=== PATIENT | male | born 1985 | race Caucasian/White ===

== ENCOUNTER 2019-02-19 15:19 | Emergency (ER) | payer SELFPAY ==
[~2019-02-19] VITALS: Ht 170.2 cm; Wt 56.8 kg
[~2019-02-19 15:19] MED LIST: NOCURR
[2019-02-19 15:40] VITALS: BP 162/86
== END 2019-02-19 18:02 | disposition left against medical advice (07) ==
LOC: EMS 15:19
DX: Z02.89 Encounter for other administrative examinations (principal); Z53.21 Procedure and treatment not carried out due to patient leaving prior to being seen by health care provider

== ENCOUNTER 2019-03-07 10:35 | Emergency (ER) | payer OTHER ==
[~2019-03-07] VITALS: Ht 170.2 cm; Wt 56.8 kg
[2019-03-07] MEDS ORDERED: IBUPROFEN 600 MG TABLET PO ONE (13:00)
[2019-03-07] MEDS ORDERED: ACETAMINOPHEN 325 MG TABLET PO ONE (13:00)
[2019-03-07 13:50] VITALS: BP 106/58
== END 2019-03-07 14:24 | disposition home or self-care (01) ==
LOC: EMS 10:35
DX: S63.91XA Sprain of unspecified part of right wrist and hand, initial encounter (principal); L03.113 Cellulitis of right upper limb; F12.90 Cannabis use, unspecified, uncomplicated; F19.90 Other psychoactive substance use, unspecified, uncomplicated; X58.XXXA Exposure to other specified factors, initial encounter; Y93.89 Activity, other specified; Y92.89 Other specified places as the place of occurrence of the external cause; Y99.8 Other external cause status